=== PATIENT | male | born 1975 | race Caucasian/White ===

== ENCOUNTER 2022-10-14 20:53 | Emergency (ER) | payer OTHER ==
[2022-10-14] MEDS ORDERED: HYDROcodone/Acetaminophen 10/325 mg Tablet ONE (22:00)
[2022-10-14] MEDS ORDERED: Ibuprofen 800 MG TAB ONE (22:00)
[2022-10-14] MEDS ORDERED: Bacitracin 1 PK ONE (22:00)
== END 2022-10-14 22:10 | disposition home or self-care (01) ==
LOC: MADERS 20:53
DX: S60.222A Contusion of left hand, initial encounter (principal); F17.220 Nicotine dependence, chewing tobacco, uncomplicated; V29.99XA Rider (driver) (passenger) of other motorcycle injured in unspecified traffic accident, initial encounter
CPT/HCPCS: 64450